=== PATIENT | male | born 1955 | race Caucasian/White ===

== ENCOUNTER 2020-11-23 18:03 | Observation (INO) | payer MEDICARE, OTHER ==
--- NOTE | 2020-11-23 18:56 | EDM.PDOC ---
ED HPI GENERAL MEDICAL PROBLEM - General Chief Complaint: Chest Pain Stated Complaint: STOMACH/BACK PAIN Time Seen by Provider: 11/23/20 18:45 Source of Information: Reports: Patient, Family History Limitations: Reports: No Limitations - History of Present Illness INITIAL COMMENTS - FREE TEXT/NARRATIVE: Patient states while working intended in his garden today he started having some left-sided back/flank pain then started having some bilateral pain under his ribs that he rated about a 3 out of 10 now it is more centralized under the epigastric area. Said he had a little bit of shortness of breath with it and after he sat down but that resolved and got better Patient states his father did have an NH at 57 He has no cardiac risk factors does not smoke He has no other complaints at this time Noted to have mild hypertension 156/87 Onset: Sudden Duration: Hour(s): (3) Location: Reports: Abdomen, Back Quality: Reports: Pressure Severity: Mild Improves with: Reports: Rest Worsens with: Reports: None Context: Reports: Activity Associated Symptoms: Reports: No Other Symptoms Lower Back Pain Score (Numeric/FACES): 5 Lower Thoracic Pain Score (Numeric/FACES): 5 - Related Data Allergies Allergy/AdvReac Type Severity Reaction Status Date / Time aspirin Allergy Irritabilit Verified 11/23/20 19:01 y Penicillins Allergy Rash Verified 11/23/20 19:01 Home Meds: Home Meds Alum Hydroxide/Mag Carbonate [Gaviscon] 1 tab PO QIDPCANDBED PRN 10/17/13 [History] Omeprazole [Prilosec] 20 mg PO DAILY 10/17/13 [History] Folic Acid 1 mg PO DAILY 11/23/20 [History] Methotrexate 17.5 mg PO WEEKLY 11/23/20 [History] ED ROS GENERAL - Review of Systems Review Of Systems: See Below Constitutional: Reports: No Symptoms HEENT: Reports: No Symptoms Respiratory: Reports: No Symptoms, Shortness of Breath, Other (Atypical chest pain presentation). Denies: Pleuritic Chest Pain Cardiovascular: Denies: Chest Pain Endocrine: Reports: No Symptoms GI/Abdominal: Reports: No Symptoms : Reports: No Symptoms Musculoskeletal: Reports: No Symptoms Skin: Reports: No Symptoms Neurological: Reports: No Symptoms Psychiatric: Reports: No Symptoms Hematologic/Lymphatic: Reports: No Symptoms Immunologic: Reports: No Symptoms ED EXAM, GENERAL - Physical Exam Exam: See Below Exam Limited By: No Limitations General Appearance: Alert, WD/WN, No Apparent Distress Ears: Normal External Exam, Hearing Grossly Normal Nose: Normal Inspection, Normal Mucosa, No Blood Throat/Mouth: Normal Inspection, Normal Lips, Normal Teeth, Normal Gums, Normal Oropharynx, Normal Voice, No Airway Compromise Head: Atraumatic, Normocephalic Neck: Normal Inspection, Supple, Non-Tender, Full Range of Motion Respiratory/Chest: No Respiratory Distress, Lungs Clear, Normal Breath Sounds, No Accessory Muscle Use, Chest Non-Tender, Other (neg cva ttp ) Cardiovascular: Normal Peripheral Pulses, Regular Rate, Rhythm, No Edema, No Gallop, No JVD, No Murmur, No Rub Back Exam: Normal Inspection, Full Range of Motion. No: Vertebral Tenderness Extremities: Normal Inspection, Non-Tender, No Pedal Edema, Normal Capillary Refill Neurological: Alert, Oriented, CN II-XII Intact, Normal Cognition, Normal Gait, Normal Reflexes, No Motor/Sensory Deficits Psychiatric: Normal Affect, Normal Mood Skin Exam: Warm, Dry, Intact, Normal Color, No Rash #1 Interpretation EKG Date: 11/23/20 Rhythm: NSR [place]: Normal P-Wave: Present QRS: Normal ST-T: Normal QT: Normal (No acute finding no ST elevation or depression normal EKG) Course - Vital Signs Text/Narrative:: cbc bmp ekg trop cxr Labs wnl Trop 8 will put pt in for obs cp/r/o Camille willing to accept Last Recorded V/S: Last Vital Signs Temp 36.8 C 11/24/20 05:43 Pulse 91 11/24/20 05:43 Resp 16 11/24/20 05:43 BP 124/79 11/24/20 05:43 Pulse Ox 96 11/24/20 02:00 - Orders/Labs/Meds Orders: Active Orders 24 hr Category Date Time Status Admission Diagnosis [ADT] Urgent ADT 11/23/20 20:12 Ordered Labs: Laboratory Tests 11/23/20 11/23/20 Range/Units 19:03 19:03 WBC 9.6 (4.0-10.0) x10^3/uL RBC 5.28 (4.5-6.0) x10^6/uL Hgb 15.3 (14.0-18.0) g/dL Hct 44.3 (40.0-52.0) % MCV 83.9 (78.0-93.0) fL MCH 29.0 (26.0-32.0) pg MCHC 34.5 (32.0-36.0) g/dL RDW Coeff of Arsh 13.1 (10.0-15.0) % Plt Count 322 (130-400) x10^3/uL Neut % (Auto) 69.1 (50.0-80.0) % Lymph % (Auto) 22.2 L (25.0-50.0) % Schleicher % (Auto) 6.0 (2.0-11.0) % Eos % (Auto) 2.5 (0.0-4.0) % Baso % (Auto) 0.2 (0.2-1.2) % Sodium 138 (136-145) mmol/L Potassium 3.8 (3.5-5.1) mmol/L Chloride 100 (98-107) mmol/L Carbon Dioxide 26 (21-32) mmol/L Anion Gap 15.8 H (5-15) mmol/L BUN 9 (7-18) mg/dL Creatinine 1.0 (0.70-1.30) mg/dL Est Cr Clr Drug Dosing TNP Estimated GFR (MDRD) > 60 Glucose 114 H (70-99) mg/dL Calcium 9.4 (8.5-10.1) mg/dL Troponin I High Sens 8 (<=76) ng/L Meds: Medications Discontinued Medications Generic Name Dose Route Start Last Admin Trade Name Freq PRN Reason Stop Dose Admin Al Hydroxide/Mg Hydroxide 30 ml 11/24/20 08:24 Aluminum Hydroxide/Magnesium Hydroxide/Simethicone Susp 30 Ml Cup PO ASDIRECTED PRN acid indigestion Folic Acid 1 mg 11/24/20 08:00 11/24/20 08:05 Folic Acid 1 Mg Tab PO Not Given DAILY KAREEM Omeprazole 20 mg 11/24/20 07:00 11/24/20 06:05 Omeprazole 20 Mg Cap.Cr PO 20 mg ACBREAKFAST KAREEM Administration Sodium Chloride 10 ml 11/24/20 00:58 Sodium Chloride 0.9% 10 Ml Syringe FLUSH ASDIRECTED PRN Keep Vein Open Departure - Departure Time of Disposition: 19:00 Disposition: Refer to Observation Condition: Good Clinical Impression: Chest pain, atypical - Discharge Information *PRESCRIPTION DRUG MONITORING PROGRAM REVIEWED*: No *COPY OF PRESCRIPTION DRUG MONITORING REPORT IN PATIENT MARIANN: No - Problem List & Annotations (1) Hiatal hernia with gastroesophageal reflux disease SNOMED Code(s): 840217058 Code(s): K21.9 - GASTRO-ESOPHAGEAL REFLUX DISEASE WITHOUT ESOPHAGITIS; K44.9 - DIAPHRAGMATIC HERNIA WITHOUT OBSTRUCTION OR GANGRENE Status: Acute (2) Chest pain, atypical SNOMED Code(s): 814648723 Code(s): R07.89 - OTHER CHEST PAIN Status: Acute - My Orders Last 24 Hours: My Active Orders 11/23/20 20:12 Admission Diagnosis [ADT] Urgent - Assessment/Plan Admission H&P: Please use this note as an admission H&P (pt rechecked NO Pain has resolved completly) Last 24 Hours: My Active Orders 11/23/20 20:12 Admission Diagnosis [ADT] Urgent
[2020-11-23 19:30] LABS: CHLORIDE,CL 100 mmol/L (98-107); SODIUM,NA 138 mmol/L (136-145)
[2020-11-23 19:31] LABS: ANION GAP 15.8 mmol/L (5-15)
--- NOTE | 2020-11-23 19:54 | CR ---
[id number] RAD/RAD Chest PA or AP 1V EXAM: FRONTAL CHEST INDICATION: ATYPICAL CHEST PAIN COMPARISON: None. DISCUSSION: The heart and lungs are normal in appearance. IMPRESSION: 1. Negative exam. Fer Evans MD 11/23/201952 Thank you for allowing us to participate in the care of your patient.
--- NOTE | 2020-11-24 00:30 | HP ---
CHIEF COMPLAINT: Lower chest and back pain. HISTORY OF PRESENT ILLNESS: This 65-year-old male with inflammatory arthritis but no history of coronary disease and only risk factor is father having an [place] at age 57 who was out working in his garden today and began having some low back pain which led to him needing to stop and then it moved into the lower chest area. He had just gotten over a cold where he had been coughing for 2 weeks. He had no associated diaphoresis but it was little bit harder to breathe. He has had a history of heartburn, but he felt this was different. He did not take anything. He is allergic to aspirin. He came in to the ER and the pain lasted probably from around 5 to 7 before it went away, but he states the back hurt so bad he could hardly move. On preliminary workup, his chest x-ray was normal, his EKG did not show any acute changes. His chest x-ray did not show any infiltrates. Decision was made to admit for observation and serial troponins. ALLERGIES: Include aspirin, gets jumpy and affects his breathing. Penicillin causes a rash. MEDICATIONS: His medication list is reviewed. He takes methotrexate 17.5 mg on Fridays; folic acid 1 mg daily; clobetasol cream as needed; Gaviscon as needed; and Lamisil cream as needed, that is an old medication on his list. PAST MEDICAL HISTORY: Includes the inflammatory arthritis, he saw Rheumatology, possibly psoriatic or RA. He has dyspepsia. He has history of squamous cell skin cancer. He has had some back pain in the past and had some epidural steroid injections. PAST SURGICAL HISTORY: No surgeries listed. FAMILY HISTORY: Father of a heart attack at a young age, 57. Sister with RA and psoriasis. Brother with hypertension. SOCIAL HISTORY: The patient is a nonsmoker. He drinks very little alcohol. He is a self-employed contractor. He is , has 3 children. REVIEW OF SYSTEMS: General: He has not reported any fever, chills. Does report harder to get over infections now that he is on methotrexate. I did do a chart review and his weight had gone down about 11 pounds from last fall earlier this winter. HEENT: No trouble swallowing. Cardiac: No upper chest pain. No jaw pain or left arm pain. No palpitations. Respiratory: He just is getting over a cough for 2 weeks. No current shortness of breath. No history of asthma or allergies. GI: No new abdominal pains. Otherwise all systems reviewed and found to be negative unless otherwise stated. PHYSICAL EXAMINATION: Vital Signs: His blood pressure is 126/88, initially it was 156/89; temp 98.2; weight 76.3 kg; pulse 74; respiratory rate 16; and O2 of 96% on room air. General: He is in no acute distress. Heart: Regular rate and rhythm. Lungs: Sounds are clear to auscultation bilaterally without crackles or wheezes. Extremities: Warm and dry. No edema. Carotids 2+ without bruits. Mental Status: Alert and orientated x3. IMAGING: Chest x-ray again no acute findings, no infiltrates. EKG, normal sinus rhythm. ASSESSMENT: 1. Atypical chest pain with cardiac risk factors of age, male sex and family history along with inflammatory arthritis. 2. Gastroesophageal reflux disease. We will have p.r.n. Gaviscon available. 3. Back pain with inflammatory arthritis. Seems to have improved currently. PLAN: The patient will be admitted for observation. We will repeat a troponin now at 3 hours and again in the morning. We will transfer him to [facility] if his condition worsens or troponins become elevated. His COVID testing was negative. White count was normal. Hemoglobin 15.3, normal. BUN 9, creatinine 1, glucose 114, otherwise lab work normal. The patient's methotrexate is not due until Monday. If his back pain returns, it is likely he may need a discharge on steroids for inflammatory arthritis. I will also get some inflammation markers in the morning. The patient and his were updated on the plan of care. He is a code level 1. He is due to see Dr. Hogue in the clinic. I discussed with him that I will see if she will see him and discharge him from the hospital. MKA: 11/23/2020 22:43:42 MODL: 11/24/2020 00:21:39 /[id number]
[2020-11-24] MEDS ORDERED: Sodium Chloride 0.9% 10 ML Syringe FLUSH PRN (00:58)
[2020-11-24] MEDS: Omeprazole 20 MG Cap.CR PO SCH (06:05)
[2020-11-24] MEDS: Folic Acid 1 MG Tab PO SCH (08:05)
[2020-11-24] MEDS ORDERED: Aluminum Hydroxide/Magnesium Hydroxide/Simethicone Susp 30 ML Cup PO PRN (08:24)
--- NOTE | 2020-11-24 09:04 | PCM.DCSUM1 ---
Discharge Summary - Hospital Course Free Text/Narrative:: Diallo is a 65-year-old male with a past medical history of inflammatory arthritis and GERD who was admitted for an observation stay on 11/23/2020 for atypical chest pain/chest pain rule out. He had been suffering from an upper respiratory infection for 2 weeks with uncontrollable coughing. His respiratory symptoms that actually improved quite a bit. He was also having some increase in his GERD symptoms as well. He was out working in the yard when he all of a sudden got some severe back pain that then radiated around his bilateral lower rib cage. The pain was so different from any of his baseline that he thought it to come in and be evaluated. EKG, troponin, chest x-ray at time of presentation were normal. After couple of hours his pain had actually improved. He was admitted for serial troponins overnight. This morning he is doing well. The pain has completely resolved. He still has some of his mild epigastric/GERD pain. He states that he doesn't feel like he was overworking himself in the garden. We discussed that with his recent cold and excessive coughing that this may have flared up some pleuritis or even some chondritis and this was further worsened by his activity yesterday afternoon. We discussed potential treatment with a steroid given his inflammatory history however cautioned this with his GERD. He feels that at this time the pain is quite improved and he would not like to do a steroid and instead would like to t reat with [id number] pain relievers as needed. He is happy to hear that his troponins have been negative overnight. He feels ready to go home. We will increase his omeprazole to 2 times a day for the next week. He will see me in the clinic in 1 week for follow-up. - Discharge Data Discharge Date: 11/24/20 Discharge Disposition: Home, Self-Care 01 Condition: Good - Referral to Home Health Primary Care Physician: Jane Hogue MD - Discharge Diagnosis/Problem(s) (1) Chest pain, atypical SNOMED Code(s): 322067833 ICD Code: R07.89 - OTHER CHEST PAIN Status: Acute Current Visit: Yes - Discharge Plan *PRESCRIPTION DRUG MONITORING PROGRAM REVIEWED*: No *COPY OF PRESCRIPTION DRUG MONITORING REPORT IN PATIENT MARIANN: No Home Medications: Home Meds Alum Hydroxide/Mag Carbonate [Gaviscon] 1 tab PO QIDPCANDBED PRN 10/17/13 [History] Omeprazole [Prilosec] 20 mg PO DAILY 10/17/13 [History] Folic Acid 1 mg PO DAILY 11/23/20 [History] Methotrexate 17.5 mg PO WEEKLY 11/23/20 [History] Forms: ED Department Discharge Referrals: Jane Hogue MD [Primary Care Provider] - - Discharge Summary/Plan Comment DC Time >30 min.: No - Patient Data Vitals - Most Recent: Last Vital Signs Temp 98.3 F 11/24/20 05:43 Pulse 91 11/24/20 05:43 Resp 16 11/24/20 05:43 BP 124/79 11/24/20 05:43 Pulse Ox 96 11/24/20 02:00 Weight - Most Recent: 168 lb 6.4 oz I&O - Last 24 hours: Intake & Output 11/23/20 11/24/20 11/24/20 22:59 06:59 14:59 Intake Total 300 Output Total 600 Balance -600 300 Lab Results - Last 24 hrs: Laboratory Results - last 24 hr 11/23/20 11/23/20 11/23/20 Range/Units 19:03 19:03 20:46 WBC 9.6 (4.0-10.0) x10^3/uL RBC 5.28 (4.5-6.0) x10^6/uL Hgb 15.3 (14.0-18.0) g/dL Hct 44.3 (40.0-52.0) % MCV 83.9 (78.0-93.0) fL MCH 29.0 (26.0-32.0) pg MCHC 34.5 (32.0-36.0) g/dL RDW Coeff of Arsh 13.1 (10.0-15.0) % Plt Count 322 (130-400) x10^3/uL Neut % (Auto) 69.1 (50.0-80.0) % Lymph % (Auto) 22.2 L (25.0-50.0) % Stanley % (Auto) 6.0 (2.0-11.0) % Eos % (Auto) 2.5 (0.0-4.0) % Baso % (Auto) 0.2 (0.2-1.2) % ESR (0-15) mm/hr Sodium 138 (136-145) mmol/L Potassium 3.8 (3.5-5.1) mmol/L Chloride 100 (98-107) mmol/L Carbon Dioxide 26 (21-32) mmol/L Anion Gap 15.8 H (5-15) mmol/L BUN 9 (7-18) mg/dL Creatinine 1.0 (0.70-1.30) mg/dL Est Cr Clr Drug Dosing TNP Estimated GFR (MDRD) > 60 Glucose 114 H (70-99) mg/dL Calcium 9.4 (8.5-10.1) mg/dL Troponin I High Sens 8 (<=76) ng/L C-Reactive Protein (<=0.9) mg/dL SARS CoV-2 RNA Rapid NIKI Negative (NEGATIVE) 11/23/20 11/24/20 11/24/20 Range/Units 22:18 06:43 06:43 WBC (4.0-10.0) x10^3/uL RBC (4.5-6.0) x10^6/uL Hgb (14.0-18.0) g/dL Hct (40.0-52.0) % MCV (78.0-93.0) fL MCH (26.0-32.0) pg MCHC (32.0-36.0) g/dL RDW Coeff of Arsh (10.0-15.0) % Plt Count (130-400) x10^3/uL Neut % (Auto) (50.0-80.0) % Lymph % (Auto) (25.0-50.0) % Stanley % (Auto) (2.0-11.0) % Eos % (Auto) (0.0-4.0) % Baso % (Auto) (0.2-1.2) % ESR 46 H (0-15) mm/hr Sodium (136-145) mmol/L Potassium (3.5-5.1) mmol/L Chloride (98-107) mmol/L Carbon Dioxide (21-32) mmol/L Anion Gap (5-15) mmol/L BUN (7-18) mg/dL Creatinine (0.70-1.30) mg/dL Est Cr Clr Drug Dosing Estimated GFR (MDRD) Glucose (70-99) mg/dL Calcium (8.5-10.1) mg/dL Troponin I High Sens 25 14 (<=76) ng/L C-Reactive Protein 2.5 H (<=0.9) mg/dL SARS CoV-2 RNA Rapid NIKI (NEGATIVE) Med Orders - Current: Current Medications Al Hydroxide/Mg Hydroxide (Aluminum Hydroxide/Magnesium Hydroxide/Simethicone Susp 30 Ml Cup) 30 ml PO ASDIRECTED PRN PRN Reason: acid indigestion Folic Acid (Folic Acid 1 Mg Tab) 1 mg PO DAILY [facility] Last Admin: 11/24/20 08:05 Dose: Not Given Documented by: Omeprazole (Omeprazole 20 Mg Cap.Cr) 20 mg PO ACBREAKFAST [facility] Last Admin: 11/24/20 06:05 Dose: 20 mg Documented by: Sodium Chloride (Sodium Chloride 0.9% 10 Ml Syringe) 10 ml FLUSH ASDIRECTED PRN PRN Reason: Keep Vein Open - Exam General: Reports: Alert, Oriented, No Acute Distress HEENT: Reports: EOMI, Mucous Membr. Moist/[place] Lungs: Reports: Clear to Auscultation, Normal Respiratory Effort Cardiovascular: Reports: Regular Rate, Regular Rhythm GI/Abdominal Exam: Normal Bowel Sounds, Soft, Tender (mild, epigastric) Extremities: Normal Inspection Skin: Reports: Warm, Dry Psy/Mental Status: Reports: Alert, Normal Affect, Normal Mood
== END 2020-11-24 09:55 | disposition home or self-care (01) ==
LOC: VM.ED 18:03 → VM.MS 20:13
PROVIDERS: ADMIT Physician Assistant Medical; ATTEND Internal Medicine
DX: R07.89 Other chest pain (principal); M13.88 Other specified arthritis, other site; K21.9 Gastro-esophageal reflux disease without esophagitis; Z88.8 Allergy status to other drugs, medicaments and biological substances; Z88.0 Allergy status to penicillin; Z79.899 Other long term (current) drug therapy; Z20.822 Contact with and (suspected) exposure to COVID-19
CPT/HCPCS: 36415; 71045; 80048; 84484; 85025; 85652; 86140; 93005; 93010; 99284; 99285-25; A9270-GY; G0378; U0002

== ENCOUNTER 2020-12-30 17:41 | Emergency (ER) | payer MEDICARE, OTHER ==
[2020-12-30] MEDS ORDERED: Sodium Chloride 0.9% 10 ML Syringe FLUSH PRN (18:04)
[2020-12-30] MEDS: Sodium Chloride 0.9% 1,000 ML IV ONE (18:13)
--- NOTE | 2020-12-30 18:13 | EDM.PDOC ---
ED HPI GENERAL MEDICAL PROBLEM - General Stated Complaint: GENERAL Time Seen by Provider: 12/30/20 17:56 Source of Information: Reports: Patient - History of Present Illness INITIAL COMMENTS - FREE TEXT/NARRATIVE: Diallo is a 65 y/o male who comes to the ER with complaints of a "lightheaded" feeling. He arrives POV with his and felt fine this AM and did some light exercise. About 1200 noon today he had an episode of 30 seconds of double vision. This quickly dissipated and then he noticed more pain in his right shoulder and neck. He has been having more pain in his right shoulder and arm over the last 2 weeks related to his arthritis. Also been more fatigued. He has been inside all afternoon and not out in the heat, but still had that lightheaded feeling. Right Shoulder Pain Score (Numeric/FACES): 3 - Related Data Allergies Allergy/AdvReac Type Severity Reaction Status Date / Time aspirin Allergy Irritabilit Verified 12/30/20 18:02 y Penicillins Allergy Rash Verified 12/30/20 18:02 Home Meds: Home Meds Alum Hydroxide/Mag Carbonate [Gaviscon] 1 tab PO QIDPCANDBED PRN 10/17/13 [History] Omeprazole [Prilosec] 20 mg PO DAILY 10/17/13 [History] Folic Acid 1 mg PO DAILY 11/23/20 [History] Methotrexate 17.5 mg PO WEEKLY 11/23/20 [History] Cefuroxime Axetil [Ceftin] 500 mg PO BID #19 tablet 12/30/20 [Rx] Past Medical History Gastrointestinal History: Reports: GERD, Hiatal Hernia Social & Family History - Caffeine Use Caffeine Use: Reports: Coffee, Soda Review of Systems - Review of Systems Review Of Systems: See Below Constitutional: Reports: No Symptoms Eyes: Reports: Vision Change (Double vision x 30 seconds, then resolved) Ears: Reports: No Symptoms Nose: Reports: No Symptoms Mouth/Throat: Reports: No Symptoms Respiratory: Reports: No Symptoms Cardiovascular: Reports: No Symptoms GI/Abdominal: Reports: No Symptoms Genitourinary: Reports: No Symptoms Musculoskeletal: Reports: Arm Pain (Right shoulder/arm pain that extends into his right posterior neck region) Skin: Reports: No Symptoms Neurological: Denies: Numbness, Tingling, Trouble Speaking, Difficulty Walking, Gait Disturbance Psychiatric: Reports: No Symptoms ED EXAM, GENERAL - Physical Exam Exam: See Below General Appearance: Alert, WD/WN, No Apparent Distress (Elderly male) Eye Exam: Bilateral Eye: PERRL Ears: Normal External Exam, Normal Canal, Hearing Grossly Normal, Normal TMs Nose: Normal Inspection, Normal Mucosa Throat/Mouth: Normal Inspection, Normal Lips, Normal Voice Head: Atraumatic, Normocephalic Neck: Normal Inspection, Supple Respiratory/Chest: No Respiratory Distress, Lungs Clear, Normal Breath Sounds, No Accessory Muscle Use, Chest Non-Tender Cardiovascular: Normal Peripheral Pulses, Regular Rate, Rhythm, No Edema, No Murmur GI/Abdominal: Normal Bowel Sounds, Soft, Non-Tender, No Distention (Male) Exam: Deferred Rectal (Males) Exam: Deferred Back Exam: Normal Inspection Extremities: Normal Inspection, Normal Range of Motion, No Pedal Edema, Normal Capillary Refill Neurological: Alert, Oriented, CN II-XII Intact, Normal Cognition, Normal Gait Psychiatric: Normal Affect Skin Exam: Warm, Dry, Intact, Normal Color, No Rash #1 Interpretation EKG Date: 12/30/20 Time: 17:46 Rhythm: NSR Rate (Beats/Min): 65 [place]: Normal P-Wave: Present QRS: Normal ST-T: Normal QT: Normal EKG Interpretation Comments: Normal Sinus Rhythm Course - Vital Signs Text/Narrative:: 1755 The patient was seen by the SUPPLY ANALYST. Labs and EKG done. Head CT ordered due to vision change earlier and lightheadness, doubt CVA, suspect sx related to Chronic Arthritis. Last Recorded V/S: Last Vital Signs Temp 36.8 C 12/30/20 17:45 Pulse 58 L 12/30/20 17:45 Resp 16 12/30/20 17:45 BP 145/80 H 12/30/20 17:45 Pulse Ox 97 12/30/20 17:45 - Orders/Labs/Meds Orders: Active Orders 24 hr Category Date Time Status EKG Documentation Completion [RC] STAT Care 12/30/20 18:05 Active Sodium Chloride 0.9% [Saline Flush] Med 12/30/20 18:04 Active 10 ml FLUSH ASDIRECTED PRN Saline Lock Insert [OM.PC] Stat Oth 12/30/20 18:05 Ordered Medication Orders Sodium Chloride (Sodium Chloride 0.9% 10 Ml Syringe) 10 ml FLUSH ASDIRECTED PRN PRN Reason: Keep Vein Open Labs: Laboratory Tests 12/30/20 12/30/20 12/30/20 Range/Units 18:24 18:24 18:24 WBC 8.0 (4.0-10.0) x10^3/uL RBC 5.00 (4.5-6.0) x10^6/uL Hgb 14.5 (14.0-18.0) g/dL Hct 42.5 (40.0-52.0) % MCV 85.0 (78.0-93.0) fL MCH 29.0 (26.0-32.0) pg MCHC 34.1 (32.0-36.0) g/dL RDW Coeff of Arsh 14.7 (10.0-15.0) % Plt Count 249 (130-400) x10^3/uL Neut % (Auto) 61.8 (50.0-80.0) % Lymph % (Auto) 28.0 (25.0-50.0) % Saunders % (Auto) 7.4 (2.0-11.0) % Eos % (Auto) 2.6 (0.0-4.0) % Baso % (Auto) 0.2 (0.2-1.2) % PT 10.4 (9.9-12.5) SEC INR 0.9 L (2.0-3.5) APTT 24.6 L (25.6-32.8) SEC Sodium 142 (136-145) mmol/L Potassium 4.3 (3.5-5.1) mmol/L Chloride 104 (98-107) mmol/L Carbon Dioxide 29 (21-32) mmol/L Anion Gap 13.3 (5-15) mmol/L BUN 10 (7-18) mg/dL Creatinine 1.0 (0.70-1.30) mg/dL Est Cr Clr Drug Dosing 69.35 mL/min Estimated GFR (MDRD) > 60 Glucose 95 (70-99) mg/dL Lactic Acid (0.4-2.0) mmol/L Calcium 8.7 (8.5-10.1) mg/dL Corrected Calcium 9.4 (8.5-10.1) mg/dL Magnesium 2.1 (1.8-2.4) mg/dL Total Bilirubin 0.2 (0.2-1.0) mg/dL AST 20 (15-37) U/L ALT 33 (16-63) U/L Alkaline Phosphatase 124 H (46-116) U/L Troponin I High Sens 6 (<=76) ng/L Total Protein 7.4 (6.4-8.2) g/dL Albumin 3.1 L (3.4-5.0) g/dL Globulin 4.3 Albumin/Globulin Ratio 0.72 Urine Color (YELLOW) Urine Appearance (CLEAR) Urine pH (5.0-8.0) Ur Specific [place] Urine Protein (NEGATIVE) mg/dL Urine Glucose (UA) (NEGATIVE) mg/dL Urine Ketones (NEGATIVE) mg/dL Urine Occult Blood (NEGATIVE) Urine Nitrite (NEGATIVE) Urine Bilirubin (NEGATIVE) Urine Urobilinogen (0.2) EU/dL Ur Leukocyte Esterase (NEGATIVE) 12/30/20 12/30/20 Range/Units 18:24 18:35 WBC (4.0-10.0) x10^3/uL RBC (4.5-6.0) x10^6/uL Hgb (14.0-18.0) g/dL Hct (40.0-52.0) % MCV (78.0-93.0) fL MCH (26.0-32.0) pg MCHC (32.0-36.0) g/dL RDW Coeff of Arsh (10.0-15.0) % Plt Count (130-400) x10^3/uL Neut % (Auto) (50.0-80.0) % Lymph % (Auto) (25.0-50.0) % Saunders % (Auto) (2.0-11.0) % Eos % (Auto) (0.0-4.0) % Baso % (Auto) (0.2-1.2) % PT (9.9-12.5) SEC INR (2.0-3.5) APTT (25.6-32.8) SEC Sodium (136-145) mmol/L Potassium (3.5-5.1) mmol/L Chloride (98-107) mmol/L Carbon Dioxide (21-32) mmol/L Anion Gap (5-15) mmol/L BUN (7-18) mg/dL Creatinine (0.70-1.30) mg/dL Est Cr Clr Drug Dosing mL/min Estimated GFR (MDRD) Glucose (70-99) mg/dL Lactic Acid 1.6 (0.4-2.0) mmol/L Calcium (8.5-10.1) mg/dL Corrected Calcium (8.5-10.1) mg/dL Magnesium (1.8-2.4) mg/dL Total Bilirubin (0.2-1.0) mg/dL AST (15-37) U/L ALT (16-63) U/L Alkaline Phosphatase (46-116) U/L Troponin I High Sens (<=76) ng/L Total Protein (6.4-8.2) g/dL Albumin (3.4-5.0) g/dL Globulin Albumin/Globulin Ratio Urine Color Yellow (YELLOW) Urine Appearance Clear (CLEAR) Urine pH 7.5 (5.0-8.0) Ur Specific [place] 1.020 Urine Protein Negative (NEGATIVE) mg/dL Urine Glucose (UA) Negative (NEGATIVE) mg/dL Urine Ketones Negative (NEGATIVE) mg/dL Urine Occult Blood Negative (NEGATIVE) Urine Nitrite Negative (NEGATIVE) Urine Bilirubin Negative (NEGATIVE) Urine Urobilinogen 0.2 (0.2) EU/dL Ur Leukocyte Esterase Negative (NEGATIVE) Meds: Medications Generic Name Dose Route Start Last Admin Trade Name Freq PRN Reason Stop Dose Admin Sodium Chloride 10 ml 12/30/20 18:04 Sodium Chloride 0.9% 10 Ml Syringe FLUSH ASDIRECTED PRN Keep Vein Open Discontinued Medications Generic Name Dose Route Start Last Admin Trade Name Freq PRN Reason Stop Dose Admin Cefuroxime Axetil 1 packet 12/30/20 19:30 Take Home: Cefuroxime 250 Mg Tab, 2 Tab Pack PO 12/30/20 19:31 ONETIME ONE Sodium Chloride 1,000 mls @ 999 mls/hr 12/30/20 18:05 12/30/20 18:13 Normal Saline IV 12/30/20 19:05 999 mls/hr ONETIME ONE Administration - Radiology Interpretation Free Text/Narrative:: CT Head WO=no intracranial findings, note sinusitis bilaterally (See final report) Departure - Departure Time of Disposition: 19:35 Disposition: Home, Self-Care 01 Clinical Impression: Methotrexate, ferry terminal supervisor, current use, History of inflammatory arthritis Sinusitis Qualifiers: Sinusitis location: unspecified location Chronicity: unspecified Qualified Code(s): J32.9 - Chronic sinusitis, unspecified - Discharge Information *PRESCRIPTION DRUG MONITORING PROGRAM REVIEWED*: Not Applicable *COPY OF PRESCRIPTION DRUG MONITORING REPORT IN PATIENT MARIANN: Not Applicable Prescriptions: Cefuroxime Axetil [Ceftin] 500 mg PO BID #19 tablet Instructions: Sinusitis, Adult, Cefuroxime Tablets, Probiotics, How to Perform a Sinus Rinse, [id number] Referrals: Jane Hogue MD [Primary Care Provider] - Additional Instructions: -Ceftin 500mg oral 2x daily x 10 days #19(Rx) Cefuroxine 250mg-Take 2 tablets tonight to start antibiotics, then fill your Rx tommorrow) -SKIP YOUR WEEKLY DOSE OF METREXATE WHILE ON THE CEFTIN. -Ibuprofen 200mg 3 tablets oral every 6 hours as needed pain/fever (Use over the counter meds) -Acetaminophen 325mg 2-3 tablets oral every 6 hours as needed for pain/fever (Use over the counter meds) -Fluticasone propionate (50mcg/sp) 2 sprays each nare daily (Use OTC meds) -Get a Mary-Med nasal rinse kit at the pharmacy and use saline to rinse your nasal passages out 2-3 a day -Drink plenty of fluids -Rest -Follow up with your PCP if you are not feeling better -Return to the ER if you have other concerns Sepsis Event Note (ED) - Focused Exam Vital Signs: Vital Signs Temp Pulse Resp BP Pulse Ox 12/30/20 17:45 36.8 C 58 L 16 145/80 H 97 - My Orders Last 24 Hours: My Active Orders 12/30/20 18:04 Sodium Chloride 0.9% [Saline Flush] 10 ml FLUSH ASDIRECTED PRN 12/30/20 18:05 EKG Documentation Completion [RC] STAT Saline Lock Insert [OM.PC] Stat - Assessment/Plan Last 24 Hours: My Active Orders 12/30/20 18:04 Sodium Chloride 0.9% [Saline Flush] 10 ml FLUSH ASDIRECTED PRN 12/30/20 18:05 EKG Documentation Completion [RC] STAT Saline Lock Insert [OM.PC] Stat Assessment:: 1)Sinusitis 2)Hx Methotrexate Use 3)Hx of Inflammatory Arthritis Plan: As above
--- NOTE | 2020-12-30 18:45 | CT ---
[id number] CT/CT Head WO IV EXAM: NONCONTRAST HEAD CT INDICATION: DOUBLE VISION/LIGHTHEADAED COMPARISON: None. DISCUSSION: The ventricles and sulci are normal in size and configuration. The [place] and white matter are normal in attenuation. No mass effect or midline shift. No acute hemorrhage or extra-axial fluid collection. No acute territorial infarct is identified. Frothy secretions in the left maxillary sinus and fluid in the right frontal sinus compatible with acute sinusitis. There are multiple opacified ethmoid air cells likely related to a combination of fluid and mucosal thickening. Mild left maxillary and sphenoid sinus mucosal thickening. IMPRESSION: 1. No acute intracranial findings. 2. Sinusitis. Fer Evans MD 12/30/20 [id number] Thank you for allowing us to participate in the care of your patient.
[2020-12-30 18:55] LABS: PTT,PARTIAL THROMBOPLSTIN TIME 24.6 SEC (25.6-32.8)
[2020-12-30 19:00] LABS: CHLORIDE,CL 104 mmol/L (98-107); SODIUM,NA 142 mmol/L (136-145)
[2020-12-30 19:05] LABS: ANION GAP 13.3 mmol/L (5-15)
[2020-12-30] MEDS: Take Home: Cefuroxime 250 MG Tab, 2 Tab Pack PO ONE (19:50)
== END 2020-12-30 19:50 | disposition home or self-care (01) ==
LOC: VM.ED 17:41
DX: J32.9 Chronic sinusitis, unspecified (principal); K21.9 Gastro-esophageal reflux disease without esophagitis; Z79.899 Other long term (current) drug therapy; Z88.0 Allergy status to penicillin; Z88.8 Allergy status to other drugs, medicaments and biological substances; Z87.39 Personal history of other diseases of the musculoskeletal system and connective tissue
CPT/HCPCS: 36415; 70450; 80053; 81003; 83605; 83735; 84484; 85025; 85610; 85730; 93005; 93010; 99284; 99284-25; A9270-GY; J7030